=== PATIENT | male | born 1965 | race Caucasian/White ===

== ENCOUNTER 2016-08-26 07:53 | Day surgery (SDC) | payer BC ==
[2016-08-25 09:17] LABS: BLOOD UREA NITROGEN 16 mg/dL (7-18)
[2016-08-25 09:20] LABS: ASPARTATE AMINO TRANSFERASE 30 U/L (15-37)
[~2016-08-26] VITALS: Ht 193 cm; Wt 175.0 kg
[~2016-08-26 07:53] MED LIST: ALLO300T PO; AMLO10TA2 PO; EPINEPHRINE 1 MG/ML, 1ML ONE; ESCI20TA PO; LIDOCAINE/PF 1%, 30ML ONE; OMEP-110 PO; ROPIvacaine/PF 0.5%, 30 ML ONE; TRIA1TAB3 PO
[2016-08-26] MEDS ORDERED: LACTATED RINGERS 1,000 ML IV SCH (08:30)
[2016-08-26 08:35] VITALS: BP 161/104
== END 2016-08-26 09:50 | disposition home or self-care (01) ==
LOC: OUT 07:53
PROVIDERS: ATTEND Orthopaedic Surgery
DX: S83.232A Complex tear of medial meniscus, current injury, left knee, initial encounter (principal); Z53.9 Procedure and treatment not carried out, unspecified reason; I10 Essential (primary) hypertension; M94.262 Chondromalacia, left knee; X58.XXXA Exposure to other specified factors, initial encounter; Y93.9 Activity, unspecified; Y92.9 Unspecified place or not applicable; Y99.9 Unspecified external cause status
CPT/HCPCS: 36415; 80053; J0171; J2795; J3490; J7120